=== PATIENT | female | born 1950 | race American Indian/Alaskan Native ===

== ENCOUNTER 2017-11-20 01:47 | Emergency (ER) | payer MEDICARE ==
--- NOTE | 2017-11-20 01:58 | Emergency Department Report ---
ED Neuro Deficit HPI - General Stated Complaint: POSS STROKE Time Seen by Provider: 11/20/17 01:53 Source: patient - History of Present Illness Initial Comments: Patient is 67 years old female with past medical history of hypertension brought to the ER as a code stroke. Family reports patient went to the bathroom around 1:05 this morning when they heard patient fell on the floor and hit her head. Patient presented to the ER with right facial droop left upper and lower extremity weakness and difficulty speaking. -: Sudden, minutes(s) Location: right face, right arm, right leg Presenting Symptoms: Present: Weak/Paralyzed One Side, Facial Droop/Numbness History of same: No Place: home Severity: moderate - Related Data Allergies/Adverse Reactions: Allergies Allergy/AdvReac Type Severity Reaction Status Date / Time No Known Allergies Allergy Unverified 11/20/17 01:51 ED Review of Systems ROS: Stated complaint: POSS STROKE Other details as noted in HPI Comment: Unobtainable due to pts medical conditions ED Past Medical Hx - Past Medical History Previous Medical History?: Yes Hx Hypertension: Yes ED Neuro Physical Exam - General Limitations: Altered Mental Status General appearance: alert, in no apparent distress Suspected Stroke: Yes - Eye Eye exam: Present: normal appearance, PERRL - ENT ENT exam: Present: normal exam, normal orophraynx, mucous membranes moist - Neck Neck exam: Present: normal inspection, full ROM. Absent: tenderness, meningismus, lymphadenopathy - Respiratory Respiratory exam: Present: normal lung sounds bilaterally. Absent: respiratory distress, wheezes, rales, rhonchi, stridor, chest wall tenderness, accessory muscle use, decreased breath sounds, prolonged expiratory - Cardiovascular Cardiovascular Exam: Present: regular rate, normal rhythm, normal heart sounds - GI/Abdominal GI/Abdominal exam: Present: soft, normal bowel sounds. Absent: distended, tenderness, guarding, rebound, rigid, organomegaly, mass, bruit, pulsatile mass , hernia - Extremities Exam Extremities exam: Present: normal inspection, full ROM, normal capillary refill - Back Exam Back exam: Present: normal inspection, full ROM. Absent: tenderness, CVA tenderness (R), CVA tenderness (L), muscle spasm, paraspinal tenderness, vertebral tenderness - Neurological Exam Neurological exam: Present: alert - NIHSS Assessment Interval: Baseline 1a. Level of Consciousness: alert 1b. LOC Questions: answers no questions correctly 1c. LOC Commands: performs 1 task correctly 2. Best Gaze: normal 3. Visual: no visual loss 4. Facial Palsy: complete paralysis 5b. Motor Arm Right: no drift 5a. Motor Arm Left: no movement 6a. Motor Leg Left: no movement 6b. Motor Leg Right: no drift 7. Limb Ataxia: absent 8. Sensory: mild/moderate sensory loss 9. Best Language: mild/moderate aphasia 10. Dysarthria: mild/moderate dysarthria 11. Extinction/Inattention: no abnormality Total Score: 17 Stroke Severity: Moderate to Severe Stroke - Skin Skin exam: Present: warm, intact, normal color ED Course Vital Signs 11/20/17 11/20/17 11/20/17 01:53 02:09 02:40 Temperature 99 F Pulse Rate 78 Respiratory 18 16 Rate Blood Pressure 201/69 165/64 O2 Sat by Pulse 100 98 Oximetry 11/20/17 02:43 Temperature Pulse Rate 61 Respiratory Rate Blood Pressure 178/67 O2 Sat by Pulse Oximetry - Reevaluation(s) Reevaluation #1: 11/20/17 02:15: Dr Cindy Douglas from [facility] neurology is examining the patient. Reevaluation #2: 11/20/17 03:00 Discussed so his doctor Jose from [facility] who advised to do a CTA before we transfer the patient. Reevaluation #3: 11/20/17 03:34 Dr. Garcia called back and said if the CT is not done not to delay the patient and send her to [facility]. - Lab Data Result diagrams: 11/20/17 02:39 11/20/17 02:39 Lab Results 11/20/17 11/20/17 11/20/17 Range/Units 02:39 02:39 02:39 WBC 15.2 H (4.5-11.0) K/mm3 RBC 4.70 (3.65-5.03) M/mm3 Hgb 13.5 (10.1-14.3) gm/dl Hct 41.1 (30.3-42.9) % MCV 88 (79-97) fl MCH 29 (28-32) pg MCHC 33 (30-34) % RDW 13.1 L (13.2-15.2) % Plt Count 215 (140-440) K/mm3 Lymph % (Auto) 21.4 (13.4-35.0) % [place] % (Auto) 7.1 (0.0-7.3) % Eos % (Auto) 1.1 (0.0-4.3) % Baso % (Auto) 0.4 (0.0-1.8) % Lymph # 3.3 (1.2-5.4) K/mm3 [place] # 1.1 H (0.0-0.8) K/mm3 Eos # 0.2 (0.0-0.4) K/mm3 Baso # 0.1 (0.0-0.1) K/mm3 Seg Neutrophils % 70.0 (40.0-70.0) % Seg Neutrophils # 10.6 H (1.8-7.7) K/mm3 PT 13.3 (12.2-14.9) Sec. INR 0.96 (0.87-1.13) APTT 28.7 (24.2-36.6) Sec. Thrombin Time 14.9 L (15.1-19.6) Sec. Sodium 137 (137-145) mmol/L Potassium 3.5 L (3.6-5.0) mmol/L Chloride 96.9 L (98-107) mmol/L Carbon Dioxide 23 (22-30) mmol/L Anion Gap 21 mmol/L BUN 8 (7-17) mg/dL Creatinine 0.5 L (0.7-1.2) mg/dL Estimated GFR > 60 ml/min BUN/Creatinine Ratio 16 % Glucose 158 H (65-100) mg/dL Calcium 8.6 (8.4-10.2) mg/dL Troponin T < 0.010 (0.00-0.029) ng/mL - EKG Data -: EKG Interpreted by Me Interpretation: no acute changes - Radiology Data Radiology results: report reviewed Referring Physician: URIEL SHIPLEY Patient Name: JUNAID SCALES Date of : 1950 Sex: Female Report Date: 2017-11-19 Report Status: Finalized Findings [facility] [address] [place] [address] Cat Scan Report Signed Patient: JUNAID SCALES MR#: [id number] : 1950 Acct:[id number] Age/Sex: 67 / F ADM Date: 11/20/17 Loc: ED Attending Dr: Ordering Physician: URIEL SHIPLEY Date of Service: 11/20/17 Procedure(s): CT head/brain wo con Accession Number(s): [id number] cc: URIEL SHIPLEY FINAL REPORT PROCEDURE: CT HEAD/BRAIN WO CON TECHNIQUE: Computerized tomography of the head was performed without contrast material. HISTORY: code stroke COMPARISON: No prior studies are available for comparison. FINDINGS: Skull and scalp: Normal. Paranasal sinuses: Normal. Ventricles and subarachnoid spaces: Normal. Cerebrum: There is a hyperdense right middle cerebral artery. There is no other evidence of acute intracranial hemorrhage, hematoma or infarction. No midline displacement or mass. The ventricles are normal.. Cerebellum and brainstem: No evidence of hemorrhage, acute infarction or mass. Vasculature: Normal. Comments: None. IMPRESSION: There is a hyperdense right middle cerebral artery. No other evidence of acute intracranial hemorrhage, hematoma or infarction is seen on this scan. Advanced imaging with MRI including diffusion imaging should be entertained. The above findings are discussed with the patient's ER physician at the time of dictation 0109 central standard time on 11/20/2017 Transcribed By: [facility] Dictated By: BOAZ DAUGHERTY MD Electronically Authenticated By: BOAZ DAUGHERTY MD Signed Date/Time: 11/19/172209 DD/ 09 TD/TT: 11/19/172209 Critical Care Time: Yes Critical care time in (mins) excluding proc time.: 65 Critical care attestation.: If time is entered above; I have spent that time in minutes in the direct care of this critically ill patient, excluding procedure time. ED Disposition Clinical Impression: Acute ischemic stroke, Received intravenous tissue plasminogen activator (tPA) in emergency department Disposition: DC-09 OP ADMIT IP TO THIS HOSP Is pt being admited?: Yes Condition: Stable
--- NOTE | 2017-11-20 02:13 | Cat Scan Report ---
FINAL REPORT PROCEDURE: CT HEAD/BRAIN WO CON TECHNIQUE: Computerized tomography of the head was performed without contrast material. HISTORY: code stroke COMPARISON: No prior studies are available for comparison. FINDINGS: Skull and scalp: Normal. Paranasal sinuses: Normal. Ventricles and subarachnoid spaces: Normal. Cerebrum: There is a hyperdense right middle cerebral artery. There is no other evidence of acute intracranial hemorrhage, hematoma or infarction. No midline displacement or mass. The ventricles are normal.. Cerebellum and brainstem: No evidence of hemorrhage, acute infarction or mass. Vasculature: Normal. Comments: None. IMPRESSION: There is a hyperdense right middle cerebral artery. No other evidence of acute intracranial hemorrhage, hematoma or infarction is seen on this scan. Advanced imaging with MRI including diffusion imaging should be entertained. The above findings are discussed with the patient's ER physician at the time of dictation 0109 central standard time on 11/20/2017
[2017-11-20] MEDS ORDERED: CATHFLO ONE (02:16)
[2017-11-20] MEDS ORDERED: ACTIVASE ONE (02:17)
[2017-11-20] MEDS ORDERED: ACTIVASE IV ONE ×4 (02:26→02:30)
[2017-11-20] MEDS ORDERED: NACL 0.9% IV ONE ×2 (02:26→02:30)
[2017-11-20 02:54] LABS: Basophils # (Auto) 0.1 K/mm3 (0.0-0.1); Basophils % (Auto) 0.4 % (0.0-1.8); Eosinophils # (Auto) 0.2 K/mm3 (0.0-0.4); Eosinophils % (Auto) 1.1 % (0.0-4.3); Hematocrit 41.1 % (30.3-42.9); Hemoglobin 13.5 gm/dl (10.1-14.3); Lymphocytes # (Auto) 3.3 K/mm3 (1.2-5.4); Lymphocytes % (Auto) 21.4 % (13.4-35.0); Mean Corpuscular HGB Conc 33 % (30-34); Mean Corpuscular Hemoglobin 29 pg (28-32); Mean Corpuscular Volume 88 fl (79-97); Monocytes # (Auto) 1.1 K/mm3 (0.0-0.8); Monocytes % (Auto) 7.1 % (0.0-7.3); Platelet Count 215 K/mm3 (140-440); Red Cell Distribution Width 13.1 % (13.2-15.2)
[2017-11-20 03:03] LABS: INR 0.96 (0.87-1.13)
[2017-11-20 03:04] LABS: Partial Thromboplastin Time 28.7 Sec. (24.2-36.6); Thrombin Time 14.9 Sec. (15.1-19.6)
[2017-11-20 03:15] LABS: BUN/Creatinine Ratio 16; Blood Urea Nitrogen 8 mg/dL (7-17); Calcium 8.6 mg/dL (8.4-10.2); Hemolysis Index 56
[2017-11-20 05:04] LABS: Bacteria,Urine 1+ /HPF (Negative); Bilirubin,Urine NEG (Negative); Blood,Urine NEG (Negative); Color,Urine Straw (Yellow); Nitrite,Urine NEG (Negative); Protein,Urine <15 mg/dL mg/dL (Negative); RBC,Urine < 1.0 /HPF (0.0-6.0); Urobilinogen,Urine < 2.0 mg/dL (<2.0)
[2017-11-20 05:33] VITALS: BP 178/67
== END 2017-11-20 04:10 | disposition admitted as inpatient to this hospital (09) ==
LOC: ED 01:47
DX: I63.9 Cerebral infarction, unspecified (principal); I10 Essential (primary) hypertension
CPT/HCPCS: 36415; 37212; 70450; 80048; 81001; 84484; 85025; 85610; 85670; 85730; 93005; 93010; 99291; J2997